=== PATIENT | female | born 1960 | race Caucasian/White ===

== ENCOUNTER 2021-04-20 09:26 | Emergency (ER) | payer OTHER, SELFPAY ==
[2021-04-20 11:09] VITALS: BP 146/76; PULSE 68; RESP 18; TEMP 36.6; O2SAT 98; BMI 36.9
--- NOTE | 2021-04-20 11:52 | ED.WOUNDLAC ---
HPI - Wound/Laceration General Chief Complaint: Wound/Laceration Stated Complaint: finger laceration Time Seen by Provider: 04/20/21 11:45 Source: patient and family Mode of arrival: ambulatory Limitations: language barrier History of Present Illness HPI narrative: 60 y/o female with history of diabetes presents to the ER with 2 small lacerations to her left hand after she accidentally cut herself with scissors this morning. Bleeding is controlled but she is worried because she is diabetic. Lacerations are located on the yeung of her left hand below the 4th and 5th digits. She denies numbness, tingling or weakness. She does not know when her last tetanus shot was. She ran the wounds under hot water and then vinegar prior to coming into the ER. Onset (ago): minute(s) (45) Extremity Location: left: hand Place: home Patient tetanus UTD: No Context: accidental Associated symptoms: none Treatments prior to arrival: bandage Related Data Allergies Allergy/AdvReac Type Severity Reaction Status Date / Time No Known Allergies Allergy Unverified 08/18/20 15:40 Review of Systems Review of Systems: Constitutional: No Fever, No Chills Cardiovascular: No Chest Pain, No SOB Gastrointestinal: No Nausea, No Vomiting Musculoskeletal: No joint pain, No Myalgias Skin: + Skin Lesions, No rash Neuro: No Weakness, No Numbness Psych: No Anxiety/Panic, No Depression Heme/Lymph: No Bruising, No Lymphadenopathy PMFSH Past Medical History Attestation statement: The following information was validated with the patient. Medical History Diabetes Myocardial infarction Surgical History (Updated 04/20/21 @ 11:11 by Roger Islas) Hx of cholecystectomy Social History Social History Advance Directives: Yes Advance Directives Information Provided: No Advance Directives on File: No Patient : No Physical Exam Vital Signs: Vital Signs: Last Vital Signs Temp 98 F 04/20/21 11:09 Pulse 68 04/20/21 11:09 Resp 18 04/20/21 11:09 BP 146/76 H 04/20/21 11:09 Pulse Ox 98 04/20/21 11:09 Body Mass Index 36.9 Appearance: Alert. Oriented X3. No acute distress. HEENT: normal inspection CVS: Normal heart rate and rhythm. Pulses normal. Respiratory: No respiratory distress. Skin: Skin warm and dry. Normal skin color. Normal skin turgor. No rashes. Extremities: left palm with two linear superficial lacerations, both 1cm long and very superficial, located below MCP of 4th and 5th digits. no surrounding erythema or ecchymosis, no active bleeding. normal ROM of all digits. NV intact distally. Neuro: Oriented X 3. No motor deficit. No sensory deficit. Course Reevaluation(s) Reevaluation #1: 60 y/o female presenting to the ER with 2 superficial lacerations to her left palm after she cut it with scissors accidentally. Area was irrigated with saline, betadine. No need for suturing, steristrips place with adequate wound margin re-approximation. TDap given. Patient counseled on wound care management. Encouraged to f/u with PCP. Stable for d/c. Discharge Plan Discharge Clinical Impression: Laceration Patient Disposition: Home, Self-Care Instructions: Diphtheria/Pertussis/Tetanus Vaccine (By injection), Finger Laceration (ED) Additional Instructions: Do not get your wound wet for 24 hours, after that you can wash with soap and water then pat dry. Steri strips will fall off on their own, usually within 1 week. If you notice signs of infection including redness, swelling, pain or drainage of pus call your doctor or come back to the ER for further evaluation. Interventions: ED Discharge Assessment Last Done: 04/20/21 12:17 Discharge Date/Time: 04/20/21 12:18 Print Language: Telugu
[2021-04-20] MEDS: Diphth,Pertus(ACell),Tet Adult 0.5 ML SYRINGE IM (12:06)
== END 2021-04-20 12:18 | disposition home or self-care (01) ==
PROVIDERS: Emergency Provider Emergency Medicine Emergency Medical Services; PCP Internal Medicine
DX: S61.412A Laceration without foreign body of left hand, initial encounter (principal); W27.2XXA Contact with scissors, initial encounter; E11.9 Type 2 diabetes mellitus without complications; I25.2 Old myocardial infarction; Y93.9 Activity, unspecified; Y92.019 Unspecified place in single-family (private) house as the place of occurrence of the external cause; Y99.9 Unspecified external cause status
CPT/HCPCS: 90471; 90715; 99284

== ENCOUNTER 2021-10-01 10:53 | Emergency (ER) | payer OTHER, SELFPAY ==
--- NOTE | ~2021-10-01 | XR_ITS ---
EXAMINATION: XR SHOULDER, RIGHT CLINICAL INFORMATION: Pain COMPARISON: Previous chest x-ray October 2015 TECHNIQUE: 3 views of the right shoulder. FINDINGS: Bone alignment is normal. No fracture or dislocation is seen. The glenohumeral joint is normal. There is mild arthritis at the acromioclavicular joint. There is a small undersurface acromial osteophyte. There is soft tissue calcification adjacent to the right greater tuberosity suggestive of calcific bursitis or tendinitis. There is a small nodule in the right upper lobe measuring 5 mm. This is similar to previous chest x-ray October 2015 and may represent a calcified granuloma. XR/XR shoulder RT min 2V IMPRESSION: No fracture or dislocation. Arthritis at the acromioclavicular joint and acromial osteophyte. Soft tissue calcification adjacent to the greater tuberosity suggestive of calcific bursitis or tendinitis.
[2021-10-01 11:01] VITALS: BP 140/95; PULSE 75; RESP 18; TEMP 36.7; O2SAT 98; BMI 89.9
--- NOTE | 2021-10-01 13:46 | ED.EXTPRO ---
HPI - Extremity Problem General Chief complaint: Extremity Problem Stated complaint: r shoulder pain x 2 days Time Seen by Provider: 10/01/21 13:26 Source: patient Mode of arrival: ambulatory Limitations: no limitations History of Present Illness HPI Narrative: 61-year-old female on Plavix here with complaints of right shoulder plain for 3 days with no known injury or trauma. Worsened with movement of the arm. No numbness, tingling, weakness. Related Data Previous Rx's Medication Instructions Recorded hydrocodone 5 mg-acetaminophen 300 1 tab PO Q6H PRN #8 tab 10/01/21 mg tablet Allergies Allergy/AdvReac Type Severity Reaction Status Date / Time No Known Allergies Allergy Unverified 08/18/20 15:40 Review of Systems Review of Systems: Yes all other systems are reviewed and are negative Constitutional: Constitutional: Reports no additional constitutional complaints, Denies body ache(s), Denies chills, Denies fever(s), Denies headache(s) and Denies weakness Eyes: Eyes: Reports no additional eye complaints and Denies change in vision ENT: Reports system reviewed and no additional complaints, except as documented, Denies dizziness, Denies headache(s), Denies nasal congestion, Denies nasal discharge and Denies neck pain Cardiovascular: Cardiovascular: Reports no additional cardiovascular complaints, Denies chest pain, Denies leg edema and Denies dyspnea Respiratory: Respiratory: Reports no additional respiratory complaints, Denies cough and Denies dyspnea Gastrointestinal: Gastrointestinal: Reports no additional gastrointestinal complaints, Denies abdominal pain, Denies diarrhea, Denies nausea and Denies vomiting Genitourinary: Genitourinary: Reports no additional female genitourinary complaints and Denies urinary incontinence Musculoskeletal: Musculoskeletal: Reports no additional musculoskeletal complaints, Denies back pain, Reports arthralgias, Denies joint swelling, Reports limited range of motion, Denies neck pain, Denies numbness and Denies tingling Integumentary/Breasts: Skin/Breast: Reports system reviewed and no additional complaints, except as docu and Denies rash Neurologic: Reports system reviewed and no additional complaints, except as documented, Denies Abnormal speech present, Denies dizziness, Denies headache(s), Denies numbness, Denies tingling and Denies weakness [facility] Past Medical History Attestation statement: The following information was validated with the patient. Source: old records reviewed and nursing notes reviewed Medical History Diabetes Myocardial infarction Surgical History Hx of cholecystectomy Social History Social History Advance Directives: No Advance Directives Information Provided: No Patient : No Physical Exam Vital Signs: Vital Signs: Last Vital Signs Temp 98.0 F 10/01/21 11:01 Pulse 75 10/01/21 11:01 Resp 18 10/01/21 11:01 BP 140/95 H 10/01/21 11:01 Pulse Ox 98 10/01/21 11:01 Body Mass Index 89.9 Const: General: cooperative, healthy appearing, comfortable and no acute distress Orientation/consciousness: patient oriented x3 Limitations: no limitations HENMT: Head: Yes normal to inspection Ears: hearing grossly normal bilaterally General nose exam: Normal external nose present Face and sinus: Yes normal facial exam Mouth: Normal oral and palatal mucosa present Throat: Yes posterior oropharynx normal Eyes: General: appearance normal, both eyes and all related structures Pupils: Equal, round and reactive pupils present Neck: Neck: Yes normal visual inspection Chest: Chest palpation & inspection: normal inspection of the chest Resp: Effort & Inspection: normal respiratory effort Auscultation: clear to auscultation bilaterally Cardio: Rate: regular rate Rhythm: regular rhythm Peripheral pulses: Peripheral pulses 2+ throughout GI: Inspection: Yes normal to inspection Palpation (GI): Soft to palpation and nontender Auscultation: normal bowel sounds Back/Spine/Pelvis: Thoracic/Lumbar Spine: thoracic and lumbar spine normal to inspection Skin: General skin exam: no rashes or lesions noted Neuro: General: patient oriented x3, no focal motor deficits and normal sensation to monofilament Cranial nerves: Yes Equal, round and reactive pupils present Cognition (Neuro): normal cognition Speech: No Abnormal speech present Gait exam (Neuro): Normal gait present Motor exam (neuro): 5/5 motor strength present throughout Extrem: Other: Tenderness to the right proximal humerus with no obvious deformity, swelling or redness. Pain is worsened with abduction of the extremity. Distal pulses are intact. No paresthesias. General: Yes normal to inspection Course Course Course Narrative: 61-year-old female here with complaints of atraumatic right shoulder pain. X-ray shows No fracture or dislocation. Arthritis at the acromioclavicular joint and acromial osteophyte. Soft tissue calcification adjacent to the greater tuberosity suggestive of calcific bursitis or tendinitis. Patient unable to take any NSAIDs due to being on Plavix. Will discharge her home with a low-dose narcotic as needed. Recommend she follow up with ortho for steroid injection. Reviewed worrisome signs and symptoms when to return to the emergency department. Comfortable discharge home. MDM - Extremity (Nontraumatic) Imaging Data shoulder x-ray: Attestation: I personally reviewed and interpreted this imaging study as follows: Radiologist's impression: No fracture or dislocation. Arthritis at the acromioclavicular joint and acromial osteophyte. Soft tissue calcification adjacent to the greater tuberosity suggestive of calcific bursitis or tendinitis. Discharge Plan Discharge Clinical Impression: Bursitis and tendinitis of shoulder region Patient Disposition: Home, Self-Care Instructions: Shoulder Bursitis (ED) Additional Instructions: Heat or ice Gentle stretching Follow-up with orthopedics for injection as discussed Prescriptions: New hydrocodone-acetaminophen 5-300 mg tablet 1 tab PO Q6H PRN (Reason: pain) Qty: 8 RF: 0 Referrals: Rodriguez Garcia MD [Physician] - 2 days Interventions: ED Discharge Assessment Last Done: 10/01/21 13:46 Print Language: Icelandic
== END 2021-10-01 13:47 | disposition home or self-care (01) ==
PROVIDERS: Emergency Provider Emergency Medicine; PCP Internal Medicine
DX: M75.51 Bursitis of right shoulder (principal); E11.9 Type 2 diabetes mellitus without complications; I25.2 Old myocardial infarction
CPT/HCPCS: 73030; 99283

== ENCOUNTER 2022-01-08 13:26 | Outpatient (REF) | payer OTHER, SELFPAY ==
[2022-01-08 13:48] LABS: COVID-19 Test Negative (Negative)
== END 2022-01-08 13:27 | disposition home or self-care (01) ==
LOC: HO.LAB 13:26
PROVIDERS: Visit Provider Internal Medicine
DX: Z20.822 Contact with and (suspected) exposure to COVID-19 (principal)
CPT/HCPCS: 87635; C9803

== ENCOUNTER 2023-01-09 11:01 | Emergency (ER) | payer OTHER, SELFPAY ==
--- NOTE | ~2023-01-09 | XR_ITS ---
EXAMINATION: XR CHEST CLINICAL INFORMATION: Cough. COMPARISON: 02/03/2016 chest radiograph. TECHNIQUE: Frontal view of the chest was obtained. FINDINGS: Positioning and penetration are suboptimal. Small nodularity overlies the lower lung omer. The heart and mediastinal structures are unremarkable. XR/XR chest 1V IMPRESSION: Small nodularity overlying the lower lung omer is nonspecific. A component of this could be projectional however true pulmonary nodules cannot be excluded. Given the long interval between studies and the interval change, a chest CT scan is recommended for better characterization of these findings.
--- NOTE | ~2023-01-09 | CT_ITS ---
EXAMINATION: CT HEAD WITHOUT CONTRAST CLINICAL INFORMATION: Altered mental status COMPARISON: 10/29/2015 TECHNIQUE: Contiguous axial imaging was performed from the skull base to vertex without intravenous contrast. This CT examination was performed using dose optimization techniques as appropriate, variously including the following: * Automated exposure control * Adjustment of mA and/or kV according to patient size (this includes techniques or standardized protocols for targeted exams where dose is matched to indication/reason for exam; i.e. extremities or head) Use of iterative reconstruction technique DLP: 776 mGy-cm. FINDINGS: There is no evidence of acute intracranial hemorrhage or territorial infarction. No abnormal mass effect or midline shift is seen. Zeng to white matter differentiation is well preserved. No extra-axial fluid collections are identified. No hydrocephalus. No significant volume loss. Patchy periventricular and deep white matter hypoattenuation is consistent with mild small vessel ischemic changes. The osseous structures and soft tissues are normal. The mastoid air cells and visualized portions of the paranasal sinuses are well aerated. CT/CT head/brain wo IV con IMPRESSION: No acute intracranial pathology.
[2023-01-09 11:07] VITALS: BP 126/90; BP 96/36; PULSE 66; PULSE 80; RESP 16; TEMP 36.5; O2SAT 97; BMI 46.6
--- NOTE | 2023-01-09 11:20 | ED_ITS ---
HPI - General Adult General Chief complaint: General Medical Stated complaint: Lethargic (increasing past 3 hours) per EMS Time Seen by Provider: 01/09/23 11:18 Source: patient and family History of Present Illness HPI narrative: This is a 62 years old female with history of diabetes brought in by the daughter with altered mental status, the daughter states that yesterday took an unknown tablet. Patient is now awake and alert denies any pain she she has no neuro deficit Onset (ago): hour(s) (6) Radiation: non-radiation Severity: moderate Relieving factors: none Exacerbating factors: none Related Data Previous Rx's Medication Instructions Recorded hydrocodone 5 mg-acetaminophen 300 1 tab PO Q6H PRN pain #8 tabs 10/01/21 mg tablet Allergies Allergy/AdvReac Type Severity Reaction Status Date / Time No Known Allergies Allergy Unverified 08/18/20 15:40 Review of Systems Constitutional: Constitutional: Reports no additional constitutional complaints ENT: Reports system reviewed and no additional complaints, except as documented Cardiovascular: Cardiovascular: Reports no additional cardiovascular complaints Respiratory: Respiratory: Reports no additional respiratory complaints Musculoskeletal: Musculoskeletal: Reports no additional musculoskeletal complaints [facility] Past Medical History [facility] Narrative: Diabetes, history of CAD status post stent Medical History Diabetes Myocardial infarction Surgical History Hx of cholecystectomy Social History Social History Smoked in Last 30 Days: No Use of substances other than those prescribed or required for medical reasons: No Advance Directives: No Physical Exam ED Vital Signs: Vital Signs - 24 hr 01/09/23 11:07 01/09/23 12:24 01/09/23 15:05 Temperature 97.7 F Pulse Rate 66 64 73 Respiratory Rate 16 14 20 Blood Pressure 96/36 L 109/53 L 112/54 L Pulse Oximetry 97 100 98 Oxygen Delivery Method Room Air Nasal Cannula Room Air Oxygen Flow Rate 2 BMI result Body Mass Index 46.6 Const General: cooperative Nutritional Appearance: well nourished Orientation/consciousness: patient oriented x3 Limitations: no limitations HENMT Head: Yes normal to inspection General nose exam: Normal external nose present Face and sinus: Yes normal facial exam Neck Neck: Yes normal visual inspection, Yes full ROM and Yes no lymphadenopathy Chest Chest palpation & inspection: normal inspection of the chest Resp Effort & Inspection: normal respiratory effort and able to speak in complete sentences Auscultation: clear to auscultation bilaterally Cardio Palpation: normal PMI Rate: regular rate Rhythm: regular rhythm GI Inspection: Yes normal to inspection Percussion: Yes normal to percussion General: Yes no CVA tenderness Back/Spine/Pelvis Back: no CVA tenderness Neuro General: patient oriented x3 Cranial nerves: Yes CN's II-XII intact bilaterally Cognition (Neuro): normal cognition Motor exam (neuro): 5/5 motor strength present throughout Course Reevaluation(s) Reevaluation #1: AWAKE AND ALERT ATE A SANDWICH,WANTS TO GO HOME,HEAD CT NEGATIVE.LYTES OK Time: 14:51 Medications Administered Discontinued Medications Generic Name Dose Route Start Last Admin Trade Name Freq PRN Reason Stop Dose Admin Sodium Chloride 1,000 mls @ 999 mls/hr 01/09/23 11:30 01/09/23 14:05 Ns IVCONT 01/09/23 12:30 Infused .Q1H1M [id number] Infusion Medical Decision Making Medical Decision Making [facility] Narrative: PRESENTED WITH ALTERED MENTAL STATUS SHE IS AWAKE AND ALERT NOW Differential Diagnosis Differential Diagnoses: The differential diagnosis associated with the presentation includes HEAD BLEED/CVA/HYPONATREMIA/HYPERNATREMIA/HYPOGLYCEMIA Admission/Observation Consideration of admission/observation: Escalation of care including admission/observation considered Lab Data [facility] Lab Attestation statement: I reviewed the patient's lab results. 01/09/23 11:39 01/09/23 11:39 Labs: Lab Results 01/09/23 01/09/23 01/09/23 Range/Units 11:39 11:39 11:39 WBC 4.5 L (4.8-10.8) X10*3/uL RBC 4.03 L (4.20-5.50) X10*6/uL Hgb 11.3 L (12.0-16.0) g/dl Hct 35.8 L (37.0-47.0) % MCV 88.8 (80.0-98.0) fL MCH 28.0 (27.0-33.0) pg MCHC 31.6 (31.0-35.0) g/dl RDW 14.7 (11.0-16.0) % Plt Count 196 (160-400) X10*3/uL MPV 10.4 (9.4-12.3) fL Immature Gran % (Auto) 0.2 (0.0-0.4) % Neut % (Auto) 63.4 (45-73) % Lymph % (Auto) 25.6 (20-40) % Bradford % (Auto) 8.6 (2-11) % Eos % (Auto) 1.5 (0-4) % Baso % (Auto) 0.7 (0-2) % Lymph # (Auto) 1.2 (1.2-4.9) X10*3/uL Bradford # (Auto) 0.4 (0.1-1.2) X10*3/uL Eos # (Auto) 0.1 (0.0-0.4) X10*3/uL Baso # (Auto) 0.0 (0.0-0.2) X10*3/uL Abs Immat Gran (auto) 0.01 (0.00-0.03) X10*3/uL Absolute Neuts (auto) 2.9 (2.0-8.3) x10*3/uL Absolute Nucleated RBC 0.000 (0.0-0.012) X10*3/uL Nucleated RBC % (auto) 0.0 (0.0-0.2) /100WBC Sodium 141 (135-145) mmol/L Potassium 4.2 (3.3-5.1) mmol/L Chloride 107 (96-108) mmol/L Carbon Dioxide 22 (22-29) mmol/L Anion Gap 16 (12-20) BUN 30 H (9-16) mg/dL Creatinine 1.43 H (0.5-1.4) mg/dL Estim Creat Clear Calc 44.9 Estimated GFR 37 Random Glucose 141 H (60-115) mg/dL Calcium 9.0 (8.4-10.2) mg/dL Total Bilirubin 0.3 (0.0-1.0) mg/dL AST 20 (5-31) U/L ALT 38 H (0-31) U/L Alkaline Phosphatase 103 (39-117) U/L Total Protein 6.0 L (6.5-8.0) g/dL Albumin 3.6 (3.5-5.0) g/dL COVID-19 ([facility]) Negative (Negative) COVID-19 Clin Com See Note Discharge Plan Discharge Clinical Impression: Lethargy Patient Disposition: Home, Self-Care Instructions: Altered Mental Status (ED) Additional Instructions: FOLLOW UP WITH YOUR PRIMARY CARE PHYSICIAN,RETURN IF WORSE . YOUR XRAY OF THE LUNG SHOWED POSSIBLE NODULE(THIS IS INCIDENTAL FINDING WILL NEED FOLLOW UP CXR OR CT SCAN MTHIS CAN BE DONE OUTPATIENT IN 3-4 WEEKS. WE GAVE YOU COPY OF CXR Prescriptions: No Action hydrocodone-acetaminophen 5-300 mg tablet 1 tab PO Q6H PRN (Reason: pain) Qty: 8 0RF Referrals: Leann Manuel MD [Primary Care Provider] - Interventions: ED Discharge Assessment Last Done: 01/09/23 15:36 Discharge Date/Time: 01/09/23 15:37
[2023-01-09] MEDS: 0.9 % Sodium Chloride 1,000 ML 999 ML IVCONT (11:34)
[2023-01-09 11:48] LABS: MANUAL DIFF FLAG NO
[2023-01-09 11:53] LABS: Basophils Percent Auto 0.7 % (0-2); Eosinophils Absolute Auto 0.1 X10*3/uL (0.0-0.4); Eosinophils Percent Auto 1.5 % (0-4); Hematocrit 35.8 % (37.0-47.0); Hemoglobin 11.3 g/dl (12.0-16.0); Imm Gran Abs Auto 0.01 X10*3/uL (0.00-0.03); Imm Gran Pct Auto 0.2 % (0.0-0.4); Lymphocytes Absolute Auto 1.2 X10*3/uL (1.2-4.9); Lymphocytes Percent Auto 25.6 % (20-40); Mean Corpuscular HGB Conc 31.6 g/dl (31.0-35.0); Mean Corpuscular Volume 88.8 fL (80.0-98.0); Mean Platelet Volume 10.4 fL (9.4-12.3); Monocytes Absolute Auto 0.4 X10*3/uL (0.1-1.2); Monocytes Percent Auto 8.6 % (2-11); Neutrophils Absolute Auto 2.9 x10*3/uL (2.0-8.3); Neutrophils Percent Auto 63.4 % (45-73); Platelet Count 196 X10*3/uL (160-400); Red Blood Count 4.03 X10*6/uL (4.20-5.50); Red Cell Distribution Width 14.7 % (11.0-16.0); White Blood Count 4.5 X10*3/uL (4.8-10.8)
[2023-01-09 12:07] LABS: COVID-19 Test Negative (Negative); IDNOW Serial# BCCEAD1C
[2023-01-09 12:24] VITALS: BP 109/53; PULSE 64; RESP 14; O2SAT 100
[2023-01-09 13:02] LABS: Alanine Aminotransferase 38 U/L (0-31); Albumin Level 3.6 g/dL (3.5-5.0); Alkaline Phosphatase 103 U/L (39-117); Anion Gap 16 (12-20); Aspartate Amino Transferase 20 U/L (5-31); Bilirubin Total 0.3 mg/dL (0.0-1.0); Blood Urea Nitrogen 30 mg/dL (9-16); Carbon Dioxide 22 mmol/L (22-29); Chloride 107 mmol/L (96-108); Creatinine Clr Calc Pharmacy 44.9; Estimated Glomerular Filt Rate 37; Glucose Random 141 mg/dL (60-115); Potassium 4.2 mmol/L (3.3-5.1); Sodium 141 mmol/L (135-145)
[2023-01-09 15:05] VITALS: BP 112/54; PULSE 73; RESP 20; O2SAT 98
== END 2023-01-09 15:37 | disposition home or self-care (01) ==
PROVIDERS: Emergency Provider Emergency Medicine; PCP Internal Medicine
DX: R41.82 Altered mental status, unspecified (principal); R53.83 Other fatigue; E11.9 Type 2 diabetes mellitus without complications; I25.2 Old myocardial infarction
CPT/HCPCS: 36415; 70450; 71045; 80053; 85025; 87635; 96360; 96361; 99284

== ENCOUNTER 2023-05-19 08:01 | Emergency (ER) | payer OTHER, SELFPAY ==
[2023-05-19 08:45] VITALS: BP 133/61; PULSE 73; RESP 19; TEMP 36.6; O2SAT 96; BMI 50.8
--- NOTE | 2023-05-19 10:03 | ED_ITS ---
HPI - Extremity Injury (Lower) General Chief Complaint: Extremity Injury, Lower Stated Complaint: leg pain Time Seen by Provider: 05/19/23 09:08 Source: patient and learning technologies specialist Mode of arrival: ambulatory Limitations: language barrier History of Present Illness HPI Narrative: 62-year-old female with a history of insulin-dependent diabetes, arthritis presents the ER with 5 days of bilateral knee pain right greater than left with no known injury or trauma. Patient denies associated swelling, redness, warmth, fevers or chills. Patient reports she has been seen by orthopedics in the past and had cortisone injections with relief. She has not called them to establish an appointment. Patient has not tried any ltdb-ogo-[id number] medications to help with the pain. Related Data Previous Rx's Medication Instructions Recorded hydrocodone 5 mg-acetaminophen 300 1 tab PO Q6H PRN pain #8 tabs 10/01/ mg tablet acetaminophen 325 mg tablet 650 mg PO Q4H PRN pain #60 tabs 05/19/23 (Tylenol) diclofenac sodium 1 % topical gel 2 g topical QID PRN pain #100 grams 05/19/23 (Voltaren Arthritis Pain) prednisone 20 mg tablet 20 mg PO DAILY #5 tabs 05/19/23 Allergies Allergy/AdvReac Type Severity Reaction Status Date / Time liraglutide [From Victoza] Allergy Unknown Verified 05/19/23 08:45 Review of Systems Review of Systems: Yes all other systems are reviewed and are negative Constitutional: Constitutional: Reports no additional constitutional complaints, Denies body ache(s), Denies chills, Denies fever(s), Denies headache(s) and Denies weakness Eyes: Eyes: Reports no additional eye complaints and Denies change in vision ENT: Reports system reviewed and no additional complaints, except as documented, Denies dizziness, Denies headache(s), Denies nasal congestion, Denies nasal discharge and Denies neck pain Cardiovascular: Cardiovascular: Reports no additional cardiovascular complaints, Denies chest pain, Denies leg edema and Denies dyspnea Respiratory: Respiratory: Reports no additional respiratory complaints, Denies cough and Denies dyspnea Gastrointestinal: Gastrointestinal: Reports no additional gastrointestinal complaints, Denies abdominal pain, Denies diarrhea, Denies nausea and Denies vomiting Genitourinary: Genitourinary: Reports no additional female genitourinary complaints and Denies urinary incontinence Musculoskeletal: Musculoskeletal: Reports no additional musculoskeletal complaints, Denies back pain, Reports arthralgias, Denies joint swelling, Denies limited range of motion, Denies neck pain, Denies numbness and Denies tingling Integumentary/Breasts: Skin/Breast: Reports system reviewed and no additional complaints, except as docu and Denies rash Neurologic: Reports system reviewed and no additional complaints, except as documented, Denies Abnormal speech present, Denies dizziness, Denies headache(s), Denies numbness, Denies tingling and Denies weakness PMFSH Past Medical History Attestation statement: The following information was validated with the patient. Source: old records reviewed and nursing notes reviewed Medical History Diabetes Myocardial infarction Surgical History Hx of cholecystectomy Social History Social History Advance Directives: No Advance Directives Information Provided: Yes Physical Exam Vital Signs: Vital Signs: Last Vital Signs Temp 98 F 05/19/23 08:45 Pulse 73 05/19/23 08:45 Resp 19 05/19/23 08:45 BP 133/61 05/19/23 08:45 Pulse Ox 96 05/19/23 08:45 O2 Del Method Room Air 05/19/23 08:45 BMI result Body Mass Index 50.8 Const: General: cooperative, healthy appearing, comfortable and no acute distress Orientation/consciousness: patient oriented x3 Limitations: no limitations HEENT: Head: Yes normal to inspection Ears: hearing grossly normal bilaterally General nose exam: Normal external nose present Face and sinus: Yes normal facial exam Mouth: Normal oral and palatal mucosa present Throat: Yes posterior oropharynx normal Eyes: General: appearance normal, both eyes and all related structures Pupils: Equal, round and reactive pupils present Neck: Neck: Yes normal visual inspection Chest: Chest palpation & inspection: normal inspection of the chest Resp: Effort & Inspection: normal respiratory effort Auscultation: clear to auscultation bilaterally Cardio: Rate: regular rate Rhythm: regular rhythm Peripheral pulses: Peripheral pulses 2+ throughout GI: Inspection: Yes normal to inspection Palpation (GI): Soft to palpation and nontender Auscultation: normal bowel sounds Back/Spine/Pelvis: Thoracic/Lumbar Spine: thoracic and lumbar spine normal to inspection Skin: General skin exam: no rashes or lesions noted Neuro: General: patient oriented x3, no focal motor deficits and normal sensation to monofilament Cranial nerves: Yes Equal, round and reactive pupils present Cognition (Neuro): normal cognition Speech: No Abnormal speech present Gait exam (Neuro): Normal gait present Motor exam (neuro): 5/5 motor strength present throughout Extrem: Other: There is tenderness the bilateral anterior knees with no obvious swelling, redness or warmth. There is full range of motion. There is no ligamental laxity. There are distal dorsalis pedis and posterior tibial pulses palpable. Sensation is intact distally. General: Yes normal to inspection Medical Decision Making Medical Decision Making MDM Narrative: 62-year-old female here with bilateral knee pain right greater than left for the last 5 days with no known injury or trauma with a history of arthritis. Patient has had relief with cortisone injections in the past. She does not currently have an orthopedic doctor. There is no evidence of warmth, swelling, redness or effusion on exam. There is full range of motion there is no reports of fall or injury to suggest need for x-ray. Patient has not tried any [id number]-mur-gyhxlbk medications. Patient likely has some underlying osteoarthritis I will give her very low-dose prednisone for 5 days. She reports her blood sugars are well controlled and she does have sliding scale coverage with her insulin and so we discussed that she may have some slight increase in her blood sugars and may need to adjust her insulin daily. She is agreeable to this. I will also give her Tylenol p.r.n. and Voltaren topical. I recommend that she follow-up with primary care and orthopedics outpatient. Reviewed worrisome signs and symptoms of when to return to the emergency room. Comfortable plan for discharge home. Differential Diagnosis Differential Diagnoses: The differential diagnosis associated with the presentation includes Osteoarthritis Low concern for septic joint, vascular injury, fracture, DVT Discharge Plan Discharge Clinical Impression: Osteoarthritis Patient Disposition: Home, Self-Care Instructions: Osteoarthritis (ED) Additional Instructions: Heat or ice to the area. Gentle stretching. Follow-up with your PCP as you may need referral for orthopedics. Calor o hielo en el ?maranda. Estiramiento suave. Kellie un seguimiento con guevara PCP, ya que es posible que necesite ciaran derivaci?n para ortopedia. Prescriptions: New prednisone 20 mg tablet 20 mg PO DAILY Qty: 5 0RF diclofenac sodium [Voltaren Arthritis Pain] 1 % gel 2 g topical QID PRN (Reason: pain) Qty: 100 0RF Rx Instructions: apply to single elbow, wrist or hand; for hand includes palm/fingers/back of hand acetaminophen [Tylenol] 325 mg tablet 650 mg PO Q4H PRN (Reason: pain) Qty: 60 0RF No Action hydrocodone-acetaminophen 5-300 mg tablet 1 tab PO Q6H PRN (Reason: pain) Qty: 8 0RF Referrals: [facility] [place] [facility] [Provider Group] - 1 week Interventions: ED Discharge Assessment Last Done: 05/19/23 10:16 Print Language: Mongolian
== END 2023-05-19 10:26 | disposition home or self-care (01) ==
PROVIDERS: Emergency Provider Student in an Organized Health Care Education/Training Program
DX: M17.0 Bilateral primary osteoarthritis of knee (principal); E11.9 Type 2 diabetes mellitus without complications; Z79.4 Long term (current) use of insulin
CPT/HCPCS: 99282; 99283